=== PATIENT | female | born 1980 | race Caucasian/White ===

== ENCOUNTER 2017-10-12 16:01 | Inpatient (IN) | payer OTHER ==
[2017-10-13] VITALS (16 sets, daily range): BP systolic 106–162; BP diastolic 58–92; PULSE 68–87; RESP 10–14; TEMP 92.2–97.9; O2SAT 96–100
[2017-10-13] MEDS ORDERED: ICU - CALL ORDERING PHYSICIAN PRN (12:45)
[2017-10-13] MEDS ORDERED: ICU - MAGNESIUM SULFATE 2 GM/NS 100 ML IV PRN ×2 (12:45)
[2017-10-13] MEDS ORDERED: ICU - POTASSIUM CHLORIDE/AQUEOUS SOLN 40 MEQ/100 ML IVPB IV PRN (12:45)
[2017-10-13] MEDS ORDERED: ICU - POTASSIUM CHLORIDE/AQUEOUS SOLN 20 MEQ/100 ML IVPB IV PRN (12:45)
[2017-10-13] MEDS ORDERED: ICU - MAGNESIUM SULFATE 4 GM/NS 100 ML IV PRN ×2 (12:45)
[2017-10-13] MEDS ORDERED: ICU - SODIUM PHOSPHATE 30 MMOL/NS 250 ML IV PRN ×2 (12:45)
[2017-10-13] MEDS ORDERED: ICU - POTASSIUM PHOSPHATE MONOBASIC 500 MG TAB PO PRN (12:45)
[2017-10-13] MEDS ORDERED: ICU - D/C ICU ELECTROLYTE ORDERS PRN (12:45)
[2017-10-13] MEDS ORDERED: POTASSIUM CHLORIDE 25 MEQ EFFERVESCENT TAB PO PRN (12:45)
[2017-10-13] MEDS ORDERED: ICU - MAGNESIUM OXIDE 400 MG TAB PO PRN (12:45)
[2017-10-13] MEDS ORDERED: LEVOTHYROXINE SODIUM 100 MCG VIAL IV PUSH ONE (12:45)
[2017-10-13] MEDS ORDERED: methylPREDNISolone SOD SUCC 125 MG/2 ML VIAL IV SCH (13:00)
[2017-10-13] MEDS ORDERED: 0.0225% SODIUM CHLORIDE, POTASSIUM CHLORIDE 20 MEQ IV SCH ×3 (13:00)
[2017-10-13] MEDS ORDERED: PHENYLEPHRINE 40 MG in D5W 500 ML IV PRN (13:00)
[2017-10-13] MEDS: cefTAZidime 1,000 MG/NS 100 ML IV SCH ×4 (13:00→19:59)
[2017-10-13] MEDS ORDERED: DOPamine 800 MG/500 ML INJ 500 ML IV SCH (13:00)
[2017-10-13] MEDS ORDERED: CLINDAMYCIN 900 MG in NS 100 ML IV SCH (13:00)
[2017-10-13] MEDS ORDERED: NOREPINEPHRINE 4 MG/D5W 250 ML IV PRN (13:00)
[2017-10-13] MEDS ORDERED: LEVOTHYROXINE 400 MCG/NS 500 ML IV SCH ×2 (13:00)
[2017-10-13 13:05] LABS: AUTOMATED NEUTROPHIL # 15.1 TH/MM3 (1.8-7.7); BASOPHIL % 0.2 % (0.0-2.0); EOSINOPHIL % 0.2 % (0.0-4.0); HEMATOCRIT 23.1 % (35.0-46.0); HEMOGLOBIN 7.8 GM/DL (11.6-15.3); LYMPH % 6.8 % (9.0-44.0); LYMPHOCYTE # 1.2 TH/MM3 (1.0-4.8); MEAN CELL VOLUME 91.1 FL (80.0-100.0); MEAN CORPUSCULAR HEMOGLOBIN 30.7 PG (27.0-34.0); MEAN CORPUSCULAR HGB CONC 33.7 % (32.0-36.0); MEAN PLATELET VOLUME 7.4 FL (7.0-11.0); MONO % 4.1 % (0.0-8.0); MONOCYTE # 0.7 TH/MM3 (0-0.9); NEUT % 88.7 % (16.0-70.0); PLATELET COUNT 183 TH/MM3 (150-450); RED BLOOD COUNT 2.54 MIL/MM3 (4.00-5.30)
[2017-10-13 13:23] LABS: BICARBONATE 23.2 MEQ/L (21.0-32.0); BLOOD UREA NITROGEN 12 MG/DL (7-18); CALCIUM 7.3 MG/DL (8.5-10.1); CHLORIDE 118 MEQ/L (98-107); CREATININE 0.99 MG/DL (0.50-1.00); DIRECT BILIRUBIN ADULT 0.2 MG/DL (0.0-0.2); GAMMA GT 13 U/L (5-55); GLOMERULAR FILTRATION RATE 64 ML/MIN (>89); GLUCOSE,RANDOM 105 MG/DL (74-106); MAGNESIUM 1.7 MG/DL (1.5-2.5); PHOSPHORUS 2.3 MG/DL (2.5-4.9); SODIUM (NA) 149 MEQ/L (136-145); TROPONIN I 0.07 NG/ML (0.02-0.05)
[2017-10-13 13:23] LABS: BILIRUBIN, URINE NEG (NEG); BLOOD, URINE MOD (NEG); GLUCOSE,URINE NEG (NEG); KETONE, URINE NEG (NEG); NITRITE,URINE NEG (NEG); PH, URINE 5.5 (5.0-8.5); URINE COLOR LIGHT-YELLOW (YELLW/STRAW); URINE LEUKOCYTE ESTERASE LARGE (NEG)
[2017-10-13 13:24] LABS: BACTERIA, URINE MOD /hpf; HYALINE CAST, URINE 2 /lpf (RARE); MUCUS URINE FEW /lpf (OCC); SQUAMOUS EPITHELIAL CELL URINE 1 /hpf (0-5); WHITE BLOOD CELL CLUMPS MANY
--- NOTE | 2017-10-13 13:27 | PD.PROCEDR ---
Central Line Procedure REASON FOR PROCEDURE Central venous access PROCEDURE PERFORMED Central line placement: Left subclavian central line CONSENT Informed consent for procedure was obtained and time out performed. The risks and benefits of the procedure were discussed to include but limited to bleeding , clot formation, infection, and even . ANESTHESIA Local injection of 1% Lidocaine DESCRIPTION OF THE PROCEDURE The patient was placed in supine, mild Trendelenburg position. The area was exposed and cleansed with ChloraPrep, times two. Large sterile drape was used to cover the patient, with the site exposed, under sterile conditions including cap, face mask, sterile gown, and sterile gloves. On single attempt, the introducer needle was inserted with negative pressure in syringe and venous flash was obtained. The guide wire was then advanced without any restriction and the needle was removed. The dilator was used without any complications. Using Seldinger technique the 20 cm 7F triple lumen catheter was advanced over the guide wire to a depth of 18 centimeters. The guide wire was removed. All ports were aspirated with dark venous blood return and flushed easily with sterile saline. All ports were capped. Antibiotic disc was placed around central line at puncture site. The central line was secured to the skin with two interrupted 2.0 silk sutures. The area was bandaged with sterile see- through central line bandage. COMPLICATIONS: No apparent complications ESTIMATED BLOOD LOSS: Less than 1 cc. Dakotah Wu MD Oct 13, 2017 13:27
--- NOTE | 2017-10-13 13:34 | RADRPT ---
EXAM DATE/TIME: 10/13/2017 12:36 [facility] COMPARISON: No previous studies available for comparison. INDICATIONS : Central line placement, organ donor MEDICAL HISTORY : None. SURGICAL HISTORY : None. ENCOUNTER: Initial ACUITY: 1 day PAIN SCORE: Non-responsive. LOCATION: Bilateral chest FINDINGS: ETT at the level of the clavicles. Left subclavian catheter with tip in the central SVC. No significa nt pneumothorax. Cardiomediastinal contours are within normal limits. Bony thorax is intact. CONCLUSION: 1. ETT good position. 2. Left subclavian central line in good position without pneumothorax. Abdirizak Pan MD on October 13, 2017 at 13:31 Board Certified Radiologist. This report was verified electronically.
[2017-10-13 13:38] LABS: CALCIUM-PROTEIN CORRECTED 8.5 MG/DL (8.5-10.1); TOTAL PROTEIN 4.9 GM/DL (6.4-8.2)
[2017-10-13] MEDS: DEXTROSE 5% IV SCH ×4 (14:00→21:48)
[2017-10-13] MEDS: METHYLPREDNISOLONE SO SUCC IV SCH ×4 (14:00→21:48)
[2017-10-13] MEDS: CLINDAMYCIN 900 MG/NS PREMIX 50 ML IV SCH ×2 (14:00→19:59)
[2017-10-13] MEDS: WATER IV SCH ×4 (14:00→21:48)
[2017-10-13] MEDS: RESP: ALBUTEROL 2.5 MG/3 ML NEB (SCH) NEB ×3 (14:50→23:59)
--- NOTE | 2017-10-13 14:50 | EKG ---
Date Performed: 10/13/2017 Time Performed: 13:27:49 PTAGE: 36 years EKG: Sinus rhythm Nonspecific T wave changes ABNORMAL ECG NO PREVIOUS TRACING DOCTOR: Han Christopher Interpretating Date/Time 10/13/2017 14:49:41
--- NOTE | 2017-10-13 14:54 | PD.PROCEDR ---
Procedure Note Procedure PROCEDURE: Fiberoptic bronchoscopy with diagnostic lavage ANESTHESIA: No anesthesia or analgesia used as the patient is declared brain PREOP DIAGNOSIS: Diagnostic bronchoscopy, pretransplant POSTOP DIAGNOSIS: Same PROCEDURE: The Olympus fiberoptic bronchoscope was advanced via the endotracheal tube into the trachea. Moderate inflammation of the trachea and main krystle noted. The right mainstem bronchi, and subsegmental bronchi of right lower lobe and right middle lobe also had moderate inflammation most likely from aspiration. Small to moderate amount of bloody secretions were lavaged and removed. There was no reaccumulation of secretions. Right upper lobe had mild amount of inflammation no significant secretions. After this the left lung was examined. The left mainstem bronchus showed mild inflammation and mild blood-tinged secretions. These were suctioned out with multiple lavages. Left upper and lower lobe lobe bronchi mild to moderate inflammation with small amount of bloody secretions which were suctioned out. BAL collected from RLL and send for studies per transplant team's protocol Dakotah Wu MD Oct 13, 2017 14:54
[2017-10-13 15:35] LABS: HEMOGLOBIN A1C 5.1 % (4.3-6.0)
[2017-10-13] MEDS ORDERED: IOHEXOL 350 MG/ML 10 ML VIAL (for RAD DIAG) IVCONTRAST ONE (18:02)
--- NOTE | 2017-10-13 18:24 | RADRPT ---
EXAM DATE/TIME: 10/13/2017 17:40 [facility] COMPARISON: No previous studies available for comparison. INDICATIONS : Organ donor IV CONTRAST: 97 cc Omnipaque 350 (iohexol) IV ; Cumulative dose for multiple exams. ORAL CONTRAST: No oral contrast ingested. RADIATION DOSE: 19.66 CTDIvol (mGy) ; Combined studies MEDICAL HISTORY : Non-responsive. SURGICAL HISTORY : Non-responsive. ENCOUNTER: Initial ACUITY: 1 day PAIN SCALE: Non-responsive LOCATION: Bilateral abdomen TECHNIQUE: Volumetric scanning of the abdomen and pelvis was performed. Using automated exposure control and ad justment of the mA and/or kV according to patient size, radiation dose was kept as low as reasonably achievable to obtain optimal diagnostic quality images. DICOM format image data is available electro nically for review and comparison. FINDINGS: There is patchy airspace consolidation and small effusions at the lung bases. T12 No focal abnormality in the liver. Gallbladder wall is mildly thickened and there is some contrast wi thin the gallbladder. Spleen is unremarkable. Adrenals, kidneys and pancreas are unremarkable. There is a small amount of free fluid in the abdomen and pelvis. There is some mild mural thickening of the colon. No bowel obstruction. No acute bony abnormalities. Owusu catheter and rectal tube are p resent. CONCLUSION: 1. Patchy airspace consolidation at the lung bases with small effusions. 2. Gallbladder wall thickening and mild mural thickening of the colon especially the right colon. 3. No acute findings in the liver, spleen, adrenals, kidneys and pancreas. 4. Mild ascites. Christo Aguilar MD on October 13, 2017 at 18:18 Board Certified Radiologist. This report was verified electronically.
--- NOTE | 2017-10-13 18:53 | RADRPT ---
EXAM DATE/TIME: 10/13/2017 17:40 [facility] COMPARISON: No previous studies available for comparison. INDICATIONS : Organ donation. IV CONTRAST: 97 cc Omnipaque 350 (iohexol) IV ; Cumulative dose for multiple exams. RADIATION DOSE: 19.66 CTDIvol (mGy) ; Combined studies MEDICAL HISTORY : Non-responsive. SURGICAL HISTORY : Non-responsive. ENCOUNTER: Initial ACUITY: 1 day PAIN SCALE: Non-responsive LOCATION: Bilateral chest TECHNIQUE: Volumetric scanning of the chest was performed. Using automated exposure control and adjustment of t he mA and/or kV according to patient size, radiation dose was kept as low as reasonably achievable to obtain optimal diagnostic quality images. DICOM format image data is available electronically for r eview and comparison. Follow-up recommendations for detected pulmonary nodules are based at a minimum on nodule size and pa tient risk factors according to Fleischner Society Guidelines. FINDINGS: One endotracheal tube in good position. NG and presumed temperature probe present. NG coiled in stoma ch. There is dependent consolidation in both lungs. Differential diagnosis includes aspiration and pneumo rené. No adenopathy. Trace pleural fluid. No pericardial fluid. Heart size appears normal. The abdomen CT for findings below the diaphragm. CONCLUSION: 1. Basilar dependent lung consolidation. Differential diagnosis includes pneumonia and aspiration. Tr rosario pleural fluid. No pericardial fluid. Support apparatus in good position. Left central line in sup erior vena cava. Christo Aguilar MD on October 13, 2017 at 18:48 Board Certified Radiologist. This report was verified electronically.
[2017-10-13] MEDS: ICU - POTASSIUM PHOSPHATE 30 MMOL/NS 250 ML IV PRN ×2 (20:55)
[2017-10-13 21:19] LABS: ALBUMIN 2.2 GM/DL (3.4-5.0); DIRECT BILIRUBIN ADULT 0.2 MG/DL (0.0-0.2)
[2017-10-13 21:21] LABS: INDIRECT BILIRUBIN 0.4 MG/DL (0.0-0.8); TOTAL BILIRUBIN ADULT 0.6 MG/DL (0.2-1.0)
[2017-10-13] MEDS: 0.0225% SODIUM CHLORIDE, POTASSIUM CHLORIDE 20 MEQ IV SCH ×3 (22:00)
[2017-10-13] MEDS ORDERED: ALBUMIN 25% INJ 100 ML IV ONE (22:15)
[2017-10-13 23:39] LABS: AUTOMATED NEUTROPHIL # 6.2 TH/MM3 (1.8-7.7); BASOPHIL % 0.3 % (0.0-2.0); EOSINOPHIL % 0.7 % (0.0-4.0); HEMATOCRIT 33.1 % (35.0-46.0); HEMOGLOBIN 11.4 GM/DL (11.6-15.3); LYMPH % 4.1 % (9.0-44.0); LYMPHOCYTE # 0.3 TH/MM3 (1.0-4.8); MEAN CELL VOLUME 89.4 FL (80.0-100.0); MEAN CORPUSCULAR HEMOGLOBIN 30.8 PG (27.0-34.0); MEAN CORPUSCULAR HGB CONC 34.4 % (32.0-36.0); MEAN PLATELET VOLUME 7.4 FL (7.0-11.0); MONOCYTE # 0.1 TH/MM3 (0-0.9); NEUT % 92.9 % (16.0-70.0); PLATELET COUNT 122 TH/MM3 (150-450); RED CELL DISTRIBUTION WIDTH 13.4 % (11.6-17.2); WHITE BLOOD COUNT 6.7 TH/MM3 (4.0-11.0)
[2017-10-13 23:52] LABS: INTERNATIONAL NORMALIZED RATIO 1.3 RATIO; PROTHROMBIN TIME - PATIENT 12.8 SEC (9.8-11.6)
[2017-10-14] VITALS (33 sets, daily range): BP systolic 96–168; BP diastolic 54–89; PULSE 85–128; RESP 14–18; TEMP 97.7–100; O2SAT 95–100
--- NOTE | 2017-10-14 | ECHRPT ---
Indication: ORGAN DONOR CONCLUSIONS Normal left ventricular size. Wall thickness is normal. The left ventricular systolic function is normal with an estimated ejection fraction in the range of 50-55%. There is trace tricuspid valve regurgitation. The estimated pulmonary arterial pressure is 35 mmHg. BP: 106 / 69 HR: 80 Rhythm: Sinus MEASUREMENTS (Male / Female) Normal Values Technical Quality:Fair 2D ECHO LV Diastolic Diameter PLAX 4.2 cm 4.2 - 5.9 / 3.9 - 5.3 cm LV Systolic Diameter PLAX 3.2 cm IVS Diastolic Thickness 1.0 cm 0.6 - 1.0 / 0.6 - 0.9 cm LVPW Diastolic Thickness 1.0 cm 0.6 - 1.0 / 0.6 - 0.9 cm LV Relative Wall Thickness 0.5 RV Internal Dim ED PLAX 2.2 cm LVOT Diameter 1.9 cm Aortic Root Diameter 2.6 cm LA Systolic Diameter LX 2.3 cm 3.0 - 4.0 / 2.7 - 3.8 cm M-MODE AV Cusp Separation MM 2.0 cm DOPPLER AV Peak Velocity 103.0 cm/s AV Peak Gradient 4.2 mmHg AV Mean Gradient 3.0 mmHg AV Velocity Time Integral 18.9 cm LVOT Peak Velocity 69.2 cm/s LVOT Peak Gradient 1.9 mmHg LVOT Velocity Time Integral 10.7 cm AV Area Cont Eq vti 1.6 cm AV Area Cont Eq pk 1.9 cm Mitral E Point Velocity 63.7 cm/s Mitral A Point Velocity 59.2 cm/s Mitral E to A Ratio 1.1 LV E' Lateral Velocity 6.1 cm/s Mitral E to LV E' Lateral Ratio 10.4 LV E' Septal Velocity 4.0 cm/s Mitral E to LV E' Septal Ratio 16.0 TR Peak Velocity 250.0 cm/s TR Peak Gradient 25.0 mmHg Right Atrial Pressure 10.0 mmHg Pulmonary Artery Systolic Pressu 35.0 mmHg Right Ventricular Systolic Press 35.0 mmHg PV Peak Velocity 43.6 cm/s PV Peak Gradient 0.8 mmHg FINDINGS LEFT VENTRICLE Normal left ventricular size. Wall thickness is normal. The left ventricular systolic function is normal with an estimated ejection fraction in the range of 50-55%. RIGHT VENTRICLE Normal right ventricular size and systolic function. LEFT ATRIUM The left atrial size is normal. RIGHT ATRIUM The right atrial size is normal. ATRIAL SEPTUM No atrial level shunt is demonstrated by color flow Doppler interrogation. AORTA The aortic root and proximal ascending aorta are normal in size on limited imaging. MITRAL VALVE Structurally normal mitral valve. No mitral valve stenosis or regurgitation. AORTIC VALVE Trileaflet aortic valve. No aortic valve stenosis or regurgitation. TRICUSPID VALVE There is trace tricuspid valve regurgitation. The estimated pulmonary arterial pressure is 35 mmHg. PULMONARY VALVE No pulmonary valve regurgitation or stenosis. PERICARDIUM No pericardial effusion. Roque Duran MD (Electronically Signed) Final Date:13 October 2017 23:59
[2017-10-14 00:01] LABS: ALBUMIN 2.4 GM/DL (3.4-5.0); AST (GOT) 49 U/L (15-37); BICARBONATE 20.7 MEQ/L (21.0-32.0); BLOOD UREA NITROGEN 10 MG/DL (7-18); CALCIUM 7.5 MG/DL (8.5-10.1); CHLORIDE 120 MEQ/L (98-107); CREATININE 1.14 MG/DL (0.50-1.00); GLOMERULAR FILTRATION RATE 54 ML/MIN (>89); GLUCOSE,RANDOM 145 MG/DL (74-106); SODIUM (NA) 148 MEQ/L (136-145)
[2017-10-14 00:02] LABS: ALT (GPT) 115 U/L (10-53)
[2017-10-14 00:04] LABS: ALKALINE PHOSPHATASE 40 U/L (45-117); TOTAL BILIRUBIN ADULT 1.7 MG/DL (0.2-1.0); TOTAL PROTEIN 5.1 GM/DL (6.4-8.2)
[2017-10-14] MEDS ORDERED: FUROSEMIDE 20 MG/2 ML VIAL IV PUSH ONE (01:00)
[2017-10-14] MEDS: CLINDAMYCIN 900 MG/NS PREMIX 50 ML IV SCH ×4 (01:11→20:19)
[2017-10-14] MEDS: cefTAZidime 1,000 MG/NS 100 ML IV SCH ×8 (01:11→19:00)
[2017-10-14] MEDS ORDERED: MILRINONE LACTATE 20 MG/20 ML VIAL IV STA (02:24)
[2017-10-14] MEDS: MILRINONE INJ 20 MG in SODIUM CHLORIDE 0.9% INJ 80 ML IV SCH ×2 (02:45→10:46)
[2017-10-14] MEDS: RESP: ALBUTEROL 2.5 MG/3 ML NEB (SCH) NEB ×6 (03:28→23:55)
[2017-10-14 04:25] LABS: HEMATOCRIT 36.1 % (35.0-46.0); HEMOGLOBIN 12.3 GM/DL (11.6-15.3); MEAN CELL VOLUME 89.4 FL (80.0-100.0); MEAN CORPUSCULAR HEMOGLOBIN 30.4 PG (27.0-34.0); MEAN PLATELET VOLUME 7.4 FL (7.0-11.0); PLATELET COUNT 146 TH/MM3 (150-450); RED BLOOD COUNT 4.04 MIL/MM3 (4.00-5.30); RED CELL DISTRIBUTION WIDTH 13.2 % (11.6-17.2); WHITE BLOOD COUNT 15.2 TH/MM3 (4.0-11.0)
[2017-10-14 04:37] LABS: INTERNATIONAL NORMALIZED RATIO 1.3 RATIO; PROTHROMBIN TIME - PATIENT 12.8 SEC (9.8-11.6)
[2017-10-14 04:48] LABS: ALBUMIN 2.6 GM/DL (3.4-5.0); ALT (GPT) 124 U/L (10-53); AST (GOT) 51 U/L (15-37); BICARBONATE 18.4 MEQ/L (21.0-32.0); BLOOD UREA NITROGEN 10 MG/DL (7-18); CALCIUM 7.5 MG/DL (8.5-10.1); CHLORIDE 116 MEQ/L (98-107); CREATININE 1.29 MG/DL (0.50-1.00); GLOMERULAR FILTRATION RATE 47 ML/MIN (>89); GLUCOSE,RANDOM 171 MG/DL (74-106); SODIUM (NA) 145 MEQ/L (136-145)
[2017-10-14 04:51] LABS: ALKALINE PHOSPHATASE 41 U/L (45-117); TOTAL BILIRUBIN ADULT 1.1 MG/DL (0.2-1.0); TOTAL PROTEIN 5.7 GM/DL (6.4-8.2)
[2017-10-14] MEDS: 0.0225% SODIUM CHLORIDE, POTASSIUM CHLORIDE 20 MEQ IV SCH ×6 (04:57→20:59)
[2017-10-14] MEDS: methylPREDNISolone SO SUCC INJ 1,000 MG in DEXTROSE 5% IN WATER 100ML INJ 100 ML IV SCH ×6 (05:18→22:00)
[2017-10-14 05:21] LABS: AMORPHOUS SEDIMENT, URINE RARE; BACTERIA, URINE RARE /hpf; BILIRUBIN, URINE NEG (NEG); BLOOD, URINE TRACE (NEG); GLUCOSE,URINE 150 mg/dL (NEG); HYALINE CAST, URINE 3 /lpf (RARE); KETONE, URINE TRACE mg/dL (NEG); MUCUS URINE FEW /lpf (OCC); NITRITE,URINE NEG (NEG); RENAL EPITHELIAL CELLS <1 /hpf; SQUAMOUS EPITHELIAL CELL URINE 1 /hpf (0-5); TRANSITIONAL EPI CELLS, URINE <1 /hpf; URINE COLOR YELLOW (YELLW/STRAW); URINE LEUKOCYTE ESTERASE MOD (NEG)
[2017-10-14] MEDS ORDERED: SODIUM BICARBONATE 8.4% SOLN 50 MEQ/50 ML VIAL IV ONE ×2 (05:45→06:30)
--- NOTE | 2017-10-14 05:55 | RADRPT ---
EXAM DATE/TIME: 10/14/2017 05:25 [facility] COMPARISON: CHEST SINGLE AP, October 13, 2017, 12:36. INDICATIONS : Organ donor. MEDICAL HISTORY : None. SURGICAL HISTORY : None. ENCOUNTER: Subsequent ACUITY: 2 days PAIN SCORE: Non-responsive. LOCATION: Bilateral chest FINDINGS: A single view of the chest demonstrates minimal left basilar density. Endotracheal tube and left subc lavian central line stable position. Nasogastric tube tip in stomach. Heart normal size. Osseous str uctures are intact. CONCLUSION: Minimal left basilar atelectasis. Sherman Rand MD on October 14, 2017 at 5:53 Board Certified Radiologist. This report was verified electronically.
[2017-10-14] MEDS: VASOPRESSIN 80 U/NS 100 ML Titrate per Translife Protocol IV PRN ×4 (06:33→08:12)
[2017-10-14 07:14] LABS: BANDS 34 % (0-6); LYMPHOCYTES 1 % (9-44); MONOCYTES 2 % (0-8); NEUTROPHIL # MANUAL DIFF 14.7 TH/MM3 (1.8-7.7); POLYS (SEG NEUTROPHILS) 63 % (16-70)
[2017-10-14] MEDS ORDERED: INSULIN HUMAN REGULAR 1,000 UNITS/10 ML VIAL IV PUSH ONE ×5 (08:00→23:30)
[2017-10-14] MEDS ORDERED: ALBUMIN 25% INJ 100 ML IV ONE ×3 (08:30→22:30)
[2017-10-14] MEDS ORDERED: FUROSEMIDE 40 MG/4 ML VIAL ONE (08:30)
[2017-10-14] MEDS ORDERED: SODIUM BICARBONATE 8.4% INJ 50 MEQ/50 ML SYR ONE ×2 (08:49→10:19)
[2017-10-14] MEDS ORDERED: FUROSEMIDE 40 MG/4 ML VIAL IV PUSH ONE ×2 (09:00→22:30)
[2017-10-14] MEDS ORDERED: SODIUM BICARBONATE 8.4% INJ 50 MEQ/50 ML SYR IV ONE (10:45)
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
--- NOTE | 2017-10-14 13:53 | MA ---
cc: Neil Dill MD DATE: 10/14/2017 PROCEDURES PERFORMED: Right and left heart catheterization, selective coronary angiography, left ventriculography. PROCEDURE NOTES: The patient was brought to the cardiac catheterization laboratory. The right groin was prepped and draped as per policy and anesthetized with 1% lidocaine. Central venous access was obtained via the right femoral vein and a 7-Egyptian sheath placed. Arterial access was obtained via the right femoral artery and a 6-Egyptian sheath placed. Coronary arteriography was performed using 6-Egyptian Lee left 4.0 and right progressive catheters. Left ventriculography was done using a standard 6-Egyptian pigtail. Right heart catheterization was done using a [place]-Luz Maria catheter. There were no apparent, immediate complications. Her arterial line was left in place. Her venotomy site was closed with VASCADE: HEMODYNAMIC DATA: Pulmonary capillary wedge: A = 11, V = 11, mean = 9. Pulmonary artery 27/14 with a mean of 19. Right ventricle 29 with an end-diastolic pressure of less than 10. Right atrium: A = 8, V = 7, mean = 5. Left ventricle 102 with an end-diastolic pressure of 12, aorta 107/47 with a mean of 72. There was no significant transvalvular aortic gradient on pullback of the pigtail catheter. CARDIAC OUTPUTS. 1. By the thermodilution method, 10.0 liters/minute giving a cardiac index of 4.8 liters/minute/meter2. 2. By the Mahamed method, 13.0 liters/minute giving a cardiac index of 6.2 liters/minute/meter2. OXYGEN SATURATIONS: 1. Pulmonary artery 86.0. 2. Right atrium 85.6. 3. Femoral artery 98.1. CORONARY ARTERIOGRAPHY: The left main is a long vessel with no disease. The left anterior descending is a medium-sized vessel giving rise to a medium-sized diagonal. No disease is seen in the LAD system. The left circumflex is a relatively small vessel giving rise to a medium-sized early branching obtuse marginal. No disease is seen in the left circumflex system. The right coronary artery is a relatively large, dominant vessel with no disease. LEFT VENTRICULOGRAPHY: Contrast injection of the left ventricle reveals no segmental wall motion abnormalities. Ejection fraction is estimated at 70-75%. CONCLUSIONS: 1. Normal right-sided heart pressures and pulmonary capillary wedge pressure. 2. Angiographically normal coronary arteries. 3. Normal left ventricular function with estimated ejection fraction of 70-75%. MD CURTIS Landa/GRAYSON , 01:33 PM , 01:52 PM UGO
[2017-10-14 14:48] LABS: HEMATOCRIT 31.5 % (35.0-46.0); MEAN CELL VOLUME 87.9 FL (80.0-100.0); MEAN CORPUSCULAR HEMOGLOBIN 30.6 PG (27.0-34.0); MEAN CORPUSCULAR HGB CONC 34.8 % (32.0-36.0); MEAN PLATELET VOLUME 7.2 FL (7.0-11.0); PLATELET COUNT 120 TH/MM3 (150-450); RED BLOOD COUNT 3.58 MIL/MM3 (4.00-5.30); RED CELL DISTRIBUTION WIDTH 13.2 % (11.6-17.2); WHITE BLOOD COUNT 14.9 TH/MM3 (4.0-11.0)
[2017-10-14 15:03] LABS: ALBUMIN 2.7 GM/DL (3.4-5.0); ALT (GPT) 102 U/L (10-53); AST (GOT) 37 U/L (15-37); BICARBONATE 23.3 MEQ/L (21.0-32.0); BLOOD UREA NITROGEN 9 MG/DL (7-18); CALCIUM 7.8 MG/DL (8.5-10.1); CHLORIDE 110 MEQ/L (98-107); CREATININE 1.37 MG/DL (0.50-1.00); GLOMERULAR FILTRATION RATE 44 ML/MIN (>89); GLUCOSE,RANDOM 201 MG/DL (74-106); MAGNESIUM 1.2 MG/DL (1.5-2.5); PHOSPHORUS 2.2 MG/DL (2.5-4.9); SODIUM (NA) 147 MEQ/L (136-145)
[2017-10-14 15:04] LABS: ALKALINE PHOSPHATASE 48 U/L (45-117); TOTAL BILIRUBIN ADULT 1.4 MG/DL (0.2-1.0); TOTAL PROTEIN 5.6 GM/DL (6.4-8.2)
--- NOTE | 2017-10-14 15:37 | RADRPT ---
EXAM DATE/TIME: 10/14/2017 15:01 [facility] COMPARISON: CHEST SINGLE AP, October 14, 2017, 5:25. INDICATIONS : Organ donor. MEDICAL HISTORY : None. SURGICAL HISTORY : None. ENCOUNTER: Subsequent ACUITY: 2 days PAIN SCORE: Non-responsive. LOCATION: Bilateral chest FINDINGS: Portable AP view of the chest demonstrates a normal-sized cardiac silhouette. Endotracheal tube, left subclavian central line, and nasogastric tube remain present. An additional line overlies the medias tinum. EKG lines overlie the patient. There is stable mild hazy opacity in the mid and lower lung zon es medially bilaterally. No pleural effusion or pneumothorax is identified. The bones and soft tissue s demonstrate no acute finding. CONCLUSION: 1. Stable atelectasis and/or airspace consolidation in the medial aspect of the lower lobes bilateral ly. 2. No other acute finding is identified. Bryce Levin MD on October 14, 2017 at 15:33 Board Certified Radiologist. This report was verified electronically.
[2017-10-14] MEDS: ICU - POTASSIUM PHOSPHATE 30 MMOL/NS 250 ML IV PRN ×2 (16:15)
--- NOTE | 2017-10-14 22:54 | RADRPT ---
EXAM DATE/TIME: 10/14/2017 22:29 [facility] COMPARISON: CHEST SINGLE AP, October 14, 2017, 15:01. INDICATIONS : Organ donation. MEDICAL HISTORY : None. SURGICAL HISTORY : None. ENCOUNTER: Subsequent ACUITY: 2 days PAIN SCORE: Non-responsive. LOCATION: Bilateral chest FINDINGS: A single AP semierect view of the chest was obtained and demonstrates the endotracheal tube in place with the tip 4 cm above the krystle. A nasogastric tube and left subclavian central venous line remain in place. There is mild hazy opacity again noted in the lung bases and infrahilar regions. The heart size remains within normal limits. There is no effusion. CONCLUSION: Patchy airspace disease remains in the infrahilar regions of both lung bases. This is not significantly changed. Basilio Carrasco MD on October 14, 2017 at 22:50 Board Certified Radiologist. This report was verified electronically.
[2017-10-14 23:29] LABS: BILIRUBIN, URINE NEG (NEG); BLOOD, URINE SMALL (NEG); GLUCOSE,URINE 150 mg/dL (NEG); KETONE, URINE NEG (NEG); NITRITE,URINE NEG (NEG); PH, URINE 6.5 (5.0-8.5); URINE COLOR LIGHT-YELLOW (YELLW/STRAW); URINE LEUKOCYTE ESTERASE NEG (NEG)
[2017-10-14 23:32] LABS: HEMATOCRIT 27.3 % (35.0-46.0); HEMOGLOBIN 9.9 GM/DL (11.6-15.3); MEAN CELL VOLUME 86.5 FL (80.0-100.0); MEAN CORPUSCULAR HEMOGLOBIN 31.5 PG (27.0-34.0); MEAN CORPUSCULAR HGB CONC 36.4 % (32.0-36.0); MEAN PLATELET VOLUME 8.1 FL (7.0-11.0); PLATELET COUNT 95 TH/MM3 (150-450); RED BLOOD COUNT 3.16 MIL/MM3 (4.00-5.30); RED CELL DISTRIBUTION WIDTH 12.6 % (11.6-17.2)
[2017-10-14 23:40] LABS: ALBUMIN 3.2 GM/DL (3.4-5.0); ALKALINE PHOSPHATASE 36 U/L (45-117); ALT (GPT) 81 U/L (10-53); AST (GOT) 30 U/L (15-37); BICARBONATE 24.5 MEQ/L (21.0-32.0); BLOOD UREA NITROGEN 10 MG/DL (7-18); CALCIUM 7.7 MG/DL (8.5-10.1); CHLORIDE 111 MEQ/L (98-107); CREATININE 1.24 MG/DL (0.50-1.00); GLOMERULAR FILTRATION RATE 49 ML/MIN (>89); GLUCOSE,RANDOM 202 MG/DL (74-106); MAGNESIUM 2.2 MG/DL (1.5-2.5); PHOSPHORUS 4.4 MG/DL (2.5-4.9); SODIUM (NA) 147 MEQ/L (136-145); TOTAL BILIRUBIN ADULT 1.2 MG/DL (0.2-1.0); TOTAL PROTEIN 5.7 GM/DL (6.4-8.2)
[2017-10-14] MEDS ORDERED: POTASSIUM CHLOR 20 MEQ PREMIX 100 ML IV ONE (23:45)
[2017-10-15] VITALS (8 sets, daily range): BP systolic 118–161; BP diastolic 60–90; PULSE 100–109; RESP 14; TEMP 97.3–99; O2SAT 98–100
[2017-10-15] MEDS: cefTAZidime 1,000 MG/NS 100 ML IV SCH ×2 (01:00)
[2017-10-15] MEDS: CLINDAMYCIN 900 MG/NS PREMIX 50 ML IV SCH (02:29)
[2017-10-15 03:18] LABS: HEMATOCRIT 27.1 % (35.0-46.0); HEMOGLOBIN 9.7 GM/DL (11.6-15.3); MEAN CELL VOLUME 86.8 FL (80.0-100.0); MEAN CORPUSCULAR HEMOGLOBIN 31.2 PG (27.0-34.0); MEAN CORPUSCULAR HGB CONC 35.9 % (32.0-36.0); MEAN PLATELET VOLUME 7.9 FL (7.0-11.0); PLATELET COUNT 100 TH/MM3 (150-450); RED BLOOD COUNT 3.12 MIL/MM3 (4.00-5.30); WHITE BLOOD COUNT 10.7 TH/MM3 (4.0-11.0)
[2017-10-15] MEDS: RESP: ALBUTEROL 2.5 MG/3 ML NEB (SCH) NEB (03:30)
[2017-10-15 03:58] LABS: ALBUMIN 2.9 GM/DL (3.4-5.0); ALT (GPT) 81 U/L (10-53); AST (GOT) 29 U/L (15-37); BICARBONATE 27.2 MEQ/L (21.0-32.0); BLOOD UREA NITROGEN 11 MG/DL (7-18); CALCIUM 8.1 MG/DL (8.5-10.1); CHLORIDE 110 MEQ/L (98-107); CREATININE 1.25 MG/DL (0.50-1.00); GLOMERULAR FILTRATION RATE 49 ML/MIN (>89); GLUCOSE,RANDOM 180 MG/DL (74-106); SODIUM (NA) 147 MEQ/L (136-145)
[2017-10-15 04:00] LABS: ALKALINE PHOSPHATASE 34 U/L (45-117); TOTAL BILIRUBIN ADULT 1.4 MG/DL (0.2-1.0); TOTAL PROTEIN 5.6 GM/DL (6.4-8.2)
[2017-10-15] MEDS ORDERED: VASOPRESSIN 20 UNITS/ML VIAL ONE (04:51)
[2017-10-15] MEDS ORDERED: FUROSEMIDE 20 MG/2 ML VIAL ONE (04:52)
[2017-10-15] MEDS ORDERED: HEPARIN SODIUM - IV 10,000 UNITS/10 ML VIAL ONE (07:43)
[2017-10-15] MEDS ORDERED: VECURONIUM BROMIDE 20 MG VIAL IV ONE (08:04)
[2017-10-15] MEDS ORDERED: SODIUM CHLORIDE 0.9% 10 ML VIAL IV FLUSH ONE (08:04)
== END 2017-10-15 08:05 | disposition expired | DRG 951 ==
LOC: N03B 16:01
DX: Z52.9 Donor of unspecified organ or tissue (principal)
CPT/HCPCS: 36430; 36620; 71045; 71270; 74178; 80048; 80053; 80074; 80076; 81001; 81003; 82150; 82248; 82330; 82550; 82552; 82805; 82948; 82977; 83036; 83690; 83735; 84100; 84155; 84484; 84702; 85007; 85025; 85027; 85610; 85730; 86403; 86850; 86900; 86901; 86920; 87015; 87070; 87077; 87086; 87102; 87116; 87186; 87205; 87206; 88307; 88331; 93005; 93306; 94640; 94664; 94667; 94668; J0713; J1265; J1644; J1815; J1940; J2260; J2370; J2930; J3475; J3480; J7040; J7050; J7060; J7613; P9016; P9047; Q9967